=== PATIENT | male | born 1945 | race Caucasian/White ===

== ENCOUNTER 2019-06-26 10:38 | Outpatient (CLI) | payer MEDICARE, OTHER ==
[2019-06-26 11:21] LABS: CALCIUM 9.6 mg/dL (8.5-10.3); CREATININE 1.6 mg/dL (0.6-1.2)
--- NOTE | 2019-06-26 14:53 | XRAY Report ---
Reason: OLD MYOCARDIAL INFARCTION Procedure Date: 06/26/2019 Accession Number: [id number] / [id number] Procedure: XR - Chest 2 View X-Ray CPT Code: 55987 Final Report FULL RESULT: EXAM: CHEST RADIOGRAPHY EXAM DATE: 06/26/2019 12:56 PM. CLINICAL HISTORY: OLD MYOCARDIAL INFARCTION. COMPARISON: None. TECHNIQUE: 2 views. FINDINGS: Lungs/Pleura: No focal opacities evident. No pleural effusion. No pneumothorax. Normal volumes. Mediastinum: Heart and mediastinal contours are unremarkable. Other: None. IMPRESSION: No acute cardiopulmonary process. RADIA
== END 2019-06-26 10:39 | disposition home or self-care (01) ==
LOC: LAB 10:38 → DI 10:39
PROVIDERS: ATTEND Internal Medicine Cardiovascular Disease
DX: I25.2 Old myocardial infarction (principal)
CPT/HCPCS: 36415; 71046; 80048; 83880

== ENCOUNTER 2021-10-01 08:36 | Emergency (ER) | payer MEDICARE, OTHER ==
[2021-10-01] MEDS ORDERED: CHERRY SYRUP 10 ML UDC PO ONE (09:22)
[2021-10-01] MEDS ORDERED: KETOROLAC 30 MG/ML VIAL IM STA (09:22)
[2021-10-01] MEDS ORDERED: DEXAMETHASONE 10 MG/ML VIAL PO STA (09:22)
--- NOTE | 2021-10-01 09:25 | ED Physician Documentation ---
PD HPI BACK PAIN - Stated complaint Stated Complaint: R LEG PX - Chief complaint Chief Complaint: Ext Problem - History obtained from History obtained from: Patient - History of Present Illness Timing - onset: How many weeks ago (1) Timing - duration: Weeks (1) Timing - details: Gradual onset, Still present Location: Lower, Right Quality: Pain, Spasm, Sharp, Similar to prior episodes Associated symptoms: No: Fever, Weakness, Numbness, Incontinent of urine, Unable to urinate, Hematuria, Incontinent of stool Improves with: Rest, Position, Meds Worsened by: Movement, Other (standing) Contributing factors: Other (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 He does state that he is working now as a health administration teacher for first graders in [place] and he has been working steadily for the past 3 months. He came to the urgent care clinic yesterday with this pain and was given Toradol and placed on a course of prednisone. He states the Toradol helped for a while and he did not have adequate pain relief throughout the night he is here now with severe pain. He states that he is sometimes able to get into a comfortable position. Indicates pain is radiating down the leg from the buttocks all the way to the foot and he denies any numbness or perineal numbness or difficulty with his bowel or bladder. Review of Systems Constitutional: denies: Fever Eyes: denies: Decreased vision Ears: denies: Ear pain Nose: denies: Rhinorrhea / runny nose, Congestion Throat: denies: Sore throat Respiratory: denies: Cough GI: denies: Vomiting PD PAST MEDICAL HISTORY - Past Medical History Cardiovascular: Hypertension, High cholesterol, Coronary artery disease, [place], Arrhythmia, Other Respiratory: None Endocrine/Autoimmune: None GI: None : Kidney stones HEENT: None Psych: None Musculoskeletal: None Derm: None - Past Surgical History Past Surgical History: Yes General: Hiatal hernia repair Cardiovascular: Angioplasty - Present Medications Home Medications: Ambulatory Orders Medication Instructions Recorded Confirmed Carvedilol 25 mg PO DAILY 03/13/14 08/08/15 Losartan [Cozaar] 25 mg PO DAILY 03/13/14 08/08/15 Ondansetron [Zofran Odt] 8 mg PO Q6H PRN #10 tab.rapdis 03/13/14 08/08/15 oxyCODONE [Roxicodone] 5 mg PO Q4-6H PRN #20 tablet 03/13/14 08/08/15 Aspirin [Aspir 81] 81 mg PO DAILY 10/10/14 08/04/15 Glucosamine Sulfate Dipot Chlr 1,500 mg PO DAILY 08/04/15 08/08/15 [Glucosamine] Simvastatin 40 mg PO DAILY 08/04/15 08/08/15 Cyclobenzaprine [Flexeril] 10 mg PO TID PRN #20 tablet 10/01/21 HYDROcod/ACETAM 5/325 [Bulpitt 5/325] 1 - 2 tablet PO Q6H PRN #14 tablet 10/01/21 - Allergies Allergies/Adverse Reactions: Allergies Allergy/AdvReac Type Severity Reaction Status Date / Time No Known Drug Allergies Allergy Verified 10/01/21 08:45 - Social History Does the pt smoke?: No Smoking Status: Never smoker Does the pt drink ETOH?: Yes Does the pt have substance abuse?: No - Immunizations Immunizations are current?: No PD ED PE NORMAL - Vitals Vital signs reviewed: Yes (normal ) - General General: Alert and oriented X 3, No acute distress, Well developed/nourished - HEENT HEENT: Atraumatic, PERRL, EOMI - Respiratory Respiratory: No respiratory distress - Derm Derm: Normal color, Warm and dry, No rash - Extremities Extremities: No deformity, No edema, Other (palpable dorsalis pedis pulse, warm non-swollen calf with leg hair similar to other side. .) - Neuro Neuro: Alert and oriented X 3, assistant counsel 2-12 intact, No motor deficit, No sensory deficit, Normal speech Eye Opening: Spontaneous Motor: Obeys Commands Verbal: Oriented GCS Score: 15 - Psych Psych: Normal mood, Normal affect Results - Vitals Vitals: Vital Signs - 24 hr 10/01/21 08:46 Temperature 36.9 C Heart Rate 70 Respiratory 19 Rate Blood Pressure 117/48 L O2 Saturation 100 Oxygen O2 Source Room air PD MEDICAL DECISION MAKING - ED course Complexity details: considered differential, d/w patient ED course: 76-year-old male with right sciatica did not have adequate relief with a single dose of prednisone. He is here today with severe pain. He is given a dose of dexamethasone 10 mg orally he is given 30 mg of Toradol IM and we will place him a short course of pain medication a muscle relaxant. I have indicated the patient to expect to have improvement over the next 2 to 5 days and I have encouraged him not to go back to school over that period of time. Departure - Departure Disposition: 01 Home, Self Care Clinical Impression: Sciatica Qualifiers: Laterality: right Qualified Code(s): M54.31 - Sciatica, right side Condition: Stable Instructions: ED Sciatica Follow-Up: Lynsey Bates MD [Primary Care Provider] - Prescriptions: Cyclobenzaprine [Flexeril] 10 mg PO TID PRN #20 tablet PRN Reason: Spasms HYDROcod/ACETAM 5/325 [Bulpitt 5/325] 1 - 2 tablet PO Q6H PRN #14 tablet PRN Reason: Pain Comments: Here today it looks like you have sciatica on the right side which is a pinched nerve in your back and we have given you some dexamethasone which will hopefully improve this. I have provided a prescription for some pain medication and muscle relaxant and this has been E scribed to [facility]tr[facility] in [place]. My recommendation is to reduce your amount of standing over the next 2 to 5 days. I will give you a note for school work for 3 days. Forms: Activity restrictions
[2021-10-01 09:47] VITALS: BP 120/66
== END 2021-10-01 09:46 | disposition home or self-care (01) ==
LOC: ED 08:36
DX: M54.31 Sciatica, right side (principal)
CPT/HCPCS: 96372; 99282; 99283; A9270

== ENCOUNTER 2023-02-12 06:58 | Outpatient (CLI) | payer MEDICARE | END 2023-02-12 06:59 | disposition short-term general hospital (02) | LOC: EMS 06:58 | DX: R07.89 Other chest pain (principal); I49.9 Cardiac arrhythmia, unspecified; I95.9 Hypotension, unspecified | CPT/HCPCS: A0425; A0427 ==